=== PATIENT | male | born 1955 | race Two or more races ===

== ENCOUNTER 2019-07-07 13:37 | Emergency (ER) | payer OTHER ==
[~2019-07-07] VITALS: Ht 157.5 cm; Wt 78.9 kg
[2019-07-07] MEDS ORDERED: RAMIPRIL10 MG PO (13:48)
[2019-07-07] MEDS ORDERED: LOPRESSOR25 MG (13:49)
[2019-07-07] MEDS ORDERED: GLIMEPIRIDE4 M1 (13:49)
[2019-07-07] MEDS ORDERED: JANUMET 50-1,01 EACH (13:49)
[2019-07-07] MEDS ORDERED: INVOKANA300 MG PO ×2 (13:49→13:52)
[2019-07-07] MEDS ORDERED: UROXATRAL10 MG PO (13:50)
[2019-07-07] MEDS ORDERED: CRESTOR10 MG PO (13:51)
[2019-07-07] MEDS ORDERED: RILUTEK50 MG PO (13:51)
== END 2019-07-07 17:03 | disposition home or self-care (01) ==
LOC: ER 13:37
DX: S00.83XA Contusion of other part of head, initial encounter (principal); W22.8XXA Striking against or struck by other objects, initial encounter; Y93.89 Activity, other specified; Y92.89 Other specified places as the place of occurrence of the external cause; Y99.8 Other external cause status

== ENCOUNTER 2019-07-25 13:20 | Emergency (ER) | payer OTHER ==
[~2019-07-25] VITALS: Ht 157.5 cm; Wt 78.9 kg
[~2019-07-25 13:20] MED LIST: CRESTOR10 MG PO; GLIMEPIRIDE4 M1; INVOKANA300 MG PO; JANUMET 50-1,01 EACH; LOPRESSOR25 MG; RAMIPRIL10 MG PO; RILUTEK50 MG PO; UROXATRAL10 MG PO
[2019-07-25] MEDS ORDERED: ALTACE10 MG PO (13:31)
[2019-07-25] MEDS ORDERED: INVOKANA300 MG PO (13:31)
[2019-07-25] MEDS ORDERED: JANUMET 50-1,01 EACH PO (13:31)
[2019-07-25] MEDS ORDERED: CRESTOR10 MG PO (13:32)
[2019-07-25] MEDS ORDERED: RILUTEK50 MG PO (13:32)
== END 2019-07-25 14:13 | disposition home or self-care (01) ==
LOC: ER
DX: S80.02XA Contusion of left knee, initial encounter (principal); W18.39XA Other fall on same level, initial encounter; Y93.01 Activity, walking, marching and hiking; Y92.238 Other place in hospital as the place of occurrence of the external cause; Y99.8 Other external cause status